=== PATIENT | female | born 1975 | race Hispanic/Latino ===

== ENCOUNTER 2024-10-06 15:40 | Emergency (ER) | payer SELFPAY ==
[~2024-10-06] VITALS: Ht 152.4 cm; Wt 70.3 kg
--- NOTE | 2024-10-06 17:48 | ERN ---
General Chief Complaint: Finger Injury Stated Complaint: FINGER SWELLING Time Seen by MD: 15:43 Time Seen by Midlevel: 15:43 Source: patient History of Present Illness Initial Comments 49-year-old female who presents to the ED due to finger swelling onset three days. Patient reports pain to the 3rd left finger, and she noticed drainage but denies fever, injuries, trauma or further associated symptoms. States she initiated antibiotics two days ago and the drainage had resolved. PMHx DM, HTN Allergies: Coded Allergies: No Known Allergies (Unverified Allergy, Unknown, 10/06/24) Past Medical History Past Medical History: Diabetes-Type II, High Cholesterol, Hypertension Past Surgical History: ROS Dictation Constitutional: Negative for fever,chills, and weight loss Eyes: Negative for injury, pain,redness, and discharge ENT: Negative for injury,pain or swelling Cardiovascular: Negative for chest pain, palpitations, and edema Respiratory: Negative for shortness of breath, cough, and wheezing, Abdomen/GI: Negative for abdominal pain, nausea, vomiting, diarrhea, and constipation Back: Negative for injury and pain : Negative for painful urination, bleeding or discharge MS/Extremity: Positive for left middle finger pain and swelling Negative for injury and deformity Skin: Negative for rash, and discoloration Neuro: Negative for headache, weakness, numbness, tingling, and seizure Psych: Negative for suicide ideation, homicidal ideation, and hallucinations Physical Exam Physical Exam Dictation General: awake, alert, no acute distress Head/Face: Normocephalic, atraumatic Eyes: normal conjuctiva Neck: Normal range of motion Cardiovascular: Normal peripheral perfusion Skin: Warm, dry, normal turgor, no rash, MS/Extremity: Pulses equal, no cyanosis, neurovascular intact, FROM, erythema and swelling of the 3rd digit consistent with paronychia Neuro: COAx4, GCS 15, normal sensory, no neurological deficits, normal gait, Psych: Normal behavior, mood, and affect normal MDM MDM: Differential diagnosis: Paronychia, cellulitis, abscess Rationale: 49-year-old female who presents to the ED due to finger swelling onset three days. Patient reports pain to the 3rd left finger, and she noticed drainage but denies fever, injuries, trauma or further associated symptoms. States she initiated antibiotics two days ago and the drainage had resolved. PMHx DM, HTN Per physical examination paronychia noted to the left 3rd digit. Incision and drainage performed with minimal purulent drainage. Based on physical examination, and history no indication of further imaging or testing indicated. Patient was educated on findings and diagnosis. Advised to continue taking antibiotics previously prescribed and follow up with PCP. Return to the ED if any worsening symptoms. Patient verbalized understanding. Patient stable for discharge. There are no social concerns with this patient. I independently interpreted the test that were performed, results were reviewed by me and considered findings on radiology if ordered. Medical management and examination interpretation discussions were had by me with other qualified healthcare professionals as indicated for the patient's care. ED Course Orders Procedure Category Date Status Time Lidocaine Hcl 1% 20ml PHA 10/06/24 Complete Vial (Lidocaine Hc 17:10 Acetaminophen 500mg PHA 10/06/24 In Process Tab (Tylenol 500mg T 18:00 Current Medications Medications (Trade) Dose Ordered Sig/Lev Route PRN Reason Start Time Stop Time Status Last Admin Dose Admin Acetaminophen (TYLenol 500MG TAB) 1,000 mg ONCE ONCE PO 10/06/24 18:00 10/06/24 18:01 Lidocaine HCl (Lidocaine HCl 1% 20ml Vial) 10 ml ONCE STAT INJ 10/06/24 17:10 10/06/24 17:12 DC Vital Signs Date Time Temp Pulse Resp B/P (MAP) Pulse Ox O2 Delivery O2 Flow Rate FiO2 10/06/24 15:42 97.3 94 16 176/103 97 Room Air 0 DX & DISP Disposition: Discharge Departure Impression: Primary Impression: Paronychia Condition: Stable Additional Instructions: Discharge home. Rest. Follow up with primary care DrChadd in 24 hours. Continue taking the antibiotics incomplete course. Return to the ER for any acute changes or worsening symptoms. If any medications were prescribed take as directed. Okay to continue home medications unless otherwise discussed during your visit in the emergency room today. Patient was also advised to follow-up with primary care physician in 1 to 2 days for continued monitoring. I participated in the following activities of this patient's care: For this patient encounter, I reviewed the PA or DOCUMENT REVIEW SPECIALIST documentation, treatment plan, and medical decision making. I did not have [id number] time with this patient. I will sign as the reviewing DrChadd And agree with the treatment plan and disposition. MEME MONDRAGON Oct 06, 2024 17:48
[2024-10-06 18:02] VITALS: BP 161/93; PULSE 84; RESP 16; TEMP 97.5; O2SAT 97
[2024-10-06] MEDS: LIDOCAINE HCL 1% 20 ML VIAL INJ STA (18:03)
[2024-10-06] MEDS: acetaMINOPHEN 500 MG TABLET PO ONE (18:04)
== END 2024-10-06 18:15 | disposition home or self-care (01) ==
LOC: EDH 15:40
DX: L03.012 Cellulitis of left finger (principal); E11.9 Type 2 diabetes mellitus without complications; E78.00 Pure hypercholesterolemia, unspecified; I10 Essential (primary) hypertension
CPT/HCPCS: 10060; 99282